=== PATIENT | male | born 1995 | race Caucasian/White ===

== ENCOUNTER 2018-11-01 02:46 | Emergency (ER) | payer MEDICAID, OTHER ==
[~2018-11-01] VITALS: Ht 182.9 cm; Wt 61.2 kg
[2018-11-01 02:55] VITALS: BP 122/76
== END 2018-11-01 03:42 | disposition left against medical advice (07) ==
LOC: ER 02:47
DX: L53.8 Other specified erythematous conditions (principal); R22.42 Localized swelling, mass and lump, left lower limb; Z53.21 Procedure and treatment not carried out due to patient leaving prior to being seen by health care provider